=== PATIENT | male | born 1980 | race Caucasian/White ===

== ENCOUNTER → 2020-10-12 07:22 | Outpatient (CLI) | payer OTHER, SELFPAY ==
[2020-04-23 14:28] VITALS: BMI 22.3
[2020-10-12 10:18] LABS: Anion Gap 3 (5-15); BUN 19 mg/dL (7-18); BUN/Creat Ratio 17.8 RATIO (10-20); Calcium,Total 9.1 mg/dL (8.5-10.1); Chloride 106 mmol/L (98-107); Cholesterol 235 mg/dL (200); Creatinine, Serum 1.07 mg/dL (0.70-1.30); EST Glomerular Filtration Rate 81 mL/min (>60); Est Glom Filt Rate - Afr Amer 99 mL/min (>60); Glucose 80 mg/dL (74-106); High Density Lipoprotein 53 mg/dL; Potassium 4.3 mmol/L (3.5-5.1); Sodium Level 139 mmol/L (136-145); Triglycerides 77 mg/dL; Very Low Density Lipoprotein 15 mg/dL (5-40)
== END ==
PROVIDERS: PCP Family Medicine; Referring Provider Family Medicine; Visit Provider Family Medicine
DX: Z13.1 Encounter for screening for diabetes mellitus (principal); Z13.220 Encounter for screening for lipoid disorders
CPT/HCPCS: 36415; 80048; 80061

== ENCOUNTER → 2020-10-29 12:37 | Outpatient (CLI) | payer SELFPAY ==
[2020-04-23 14:28] VITALS: BMI 22.3
--- NOTE | 2020-10-29 12:42 | STE_ITS ---
Reason For Study: ABN. EKG Stress Results Protocol: Parveen Protocol WITH DEFINITY Maximum Predicted HR: 181 bpm Target HR: 154 bpm % Maximum Predicted HR: 99 % DurationHeart Rate Stage (mm:ss) (bpm) BP Comment BASELINE 72 132/863 CC DEFINITY FOR ENTIRE TEST STAGE 1 3:00 106 152/88 STAGE 2 3:00 127 160/90 STAGE 3 3:00 176 172/84 STAGE 4 3:00 179 180/70 RECOVERY 106 130/86 Stress Duration: 12:00 mm:ss Maximum Stress HR: 179 bpm Baseline Echocardiogram Findings The estimated ejection fraction is 55 %. post stress EF is 75%. Stress Echo Wall motion Data Resting WM Intermediate WM Stress WM Resting Wall Motion Wall Motion Stress No regional wall motion No regional wall motion abnormalities noted. abnormalities noted. EKG Data The baseline ECG displays normal sinus rhythm. During stress, there were no ST or T wave changes noted to suggest ischemia. Symptoms with Stress The patient experinced no chest pain . Interpretation Summary The estimated ejection fraction is 55 %. Stress echo is negative for exercise induced CP or EKG or Echocardiographic changes of ischemia Ordering Physician: Giovanni Lundberg Referring Physician: Giovanni Lundberg Performed By: Angel Mata RCS
== END ==
PROVIDERS: PCP Family Medicine; Referring Provider Family Medicine; Visit Provider Family Medicine
DX: R94.31 Abnormal electrocardiogram [ECG] [EKG] (principal)
CPT/HCPCS: 93017; 93350; Q9957; A4216; C8928

== ENCOUNTER → 2020-12-28 16:07 | Outpatient (CLI) | payer SELFPAY ==
--- NOTE | 2020-12-28 | VAS_PTH ---
PATIENT: TERRANCE GAMEZ LOC: [facility] U#:[id number] AGE/SX: 44/M ROOM: RE12/28/[address]: Dr. Rafael Marques MD : 1980 BED: DIS: SPEC #: [id number] RECD: 12/28/20 15:50 STATUS: JASBIR SOSA #: [id number] EMILIANO: 12/28/20 00:[address]: Rafael Marques DEPT: SURGICAL PATHOLOGY RECD BY: Jules Newell ENTERED: 12/31/20 08:29 SP TYPE: VAS OTHR DR: Dr. Giovanni Lundberg MD Tissues: A - Vas deferens, NOS B - Vas deferens, NOS Procedures: Surgery Specimen Level II HEADER OPERATION: Bilateral partial vasectomy PRE-OP DIAGNOSIS: Sterilization TISSUE SUBMITTED: A - Left vas deferens, B - Right vas deferens MICROSCOPIC DIAGNOSIS A. Left vas deferens, partial vasectomy: Completely transected segment of vas deferens, no pathologic diagnosis. B. Right vas deferens, partial vasectomy: Completely transected segment of vas deferens, no pathologic diagnosis. BASSEM:adolph 01/01/2021 MICROSCOPIC DESCRIPTION Slides are reviewed. GROSS DESCRIPTION A - Received is one container designated left vas deferens. The specimen consists of a tubular segment of maldonado soft tissue measuring 1 cm in length and 0.3 cm in diameter. The entire specimen is submitted in one cassette. It will be sectioned at the time of embedding. B - Received is one container designated right vas deferens. The specimen consists of a tubular segment of maldonado soft tissue measuring 1 cm in length and 0.3 cm in diameter. The entire specimen is submitted in one cassette. It will be sectioned at the time of embedding. / BASSEM:adolph 12/31/20 TC:4 CPT: 88334 x2
== END ==
PROVIDERS: PCP Family Medicine; Referring Provider Surgery; Visit Provider Surgery
DX: Z30.2 Encounter for sterilization (principal)
CPT/HCPCS: 88302

== ENCOUNTER → 2021-01-25 10:22 | Outpatient (CLI) | payer SELFPAY ==
[2021-01-28 13:30] LABS: Semen Analysis Post Vas ABSENT
== END ==
PROVIDERS: PCP Family Medicine; Referring Provider Surgery; Visit Provider Surgery
DX: Z30.2 Encounter for sterilization (principal)
CPT/HCPCS: 89321

== ENCOUNTER → 2021-01-29 08:39 | Outpatient (CLI) | payer SELFPAY ==
[2021-01-30 12:33] LABS: Semen Analysis Post Vas ABSENT
== END ==
PROVIDERS: PCP Family Medicine; Referring Provider Surgery; Visit Provider Surgery
DX: Z30.2 Encounter for sterilization (principal)
CPT/HCPCS: 89321

== ENCOUNTER → 2021-06-05 10:22 | Outpatient (CLI) | payer SELFPAY ==
--- NOTE | 2021-06-05 10:27 | US_ITS ---
EXAM: US SCROTUM CLINICAL INDICATION: TESTI PAIN TECHNIQUE: Realtime ultrasound of the testicles was performed with grayscale and Color Doppler analysis. This report was created using [employer] report [employer] technology. COMPARISON: None. FINDINGS: RIGHT TESTICLE: Unremarkable. Normal in size and echotexture. No focal lesion. Normal blood flow is present. LEFT TESTICLE: Unremarkable. Normal in size and echotexture. No focal lesion. Normal blood flow is present. EPIDIDYMIDES: Slight enlargement of the left epididymis but normal echotexture, without focal lesion. Normal color Doppler flow pattern in the epididymis. SCROTUM: Small bilateral hydroceles. US/Testicular with Arterial Flow IMPRESSION: Unremarkable sonographic appearance of the testicles. Small bilateral hydroceles. Electronically Signed: Jonathan Alcala MD ([place]) at 13:54 EDT , Service support ,
== END ==
PROVIDERS: PCP Family Medicine; Referring Provider Family Medicine; Visit Provider Family Medicine
DX: N50.812 Left testicular pain (principal)
CPT/HCPCS: 76870; 93976

== ENCOUNTER 2021-11-29 10:04 | Outpatient (CLI) | payer SELFPAY ==
[2021-11-29 12:42] LABS: Anion Gap 6 (5-15); BUN 20 mg/dL (7-18); BUN/Creat Ratio 19.4 RATIO (10-20); Calcium,Total 9.4 mg/dL (8.5-10.1); Chloride 107 mmol/L (98-107); Cholesterol 238 mg/dL (200); Creatinine, Serum 1.03 mg/dL (0.70-1.30); EST Glomerular Filtration Rate 85 mL/min (>60); Est Glom Filt Rate - Afr Amer 102 mL/min (>60); Glucose 107 mg/dL (74-106); High Density Lipoprotein 49 mg/dL; Potassium 3.6 mmol/L (3.5-5.1); Sodium Level 138 mmol/L (136-145); Triglycerides 155 mg/dL; Very Low Density Lipoprotein 31 mg/dL (5-40)
== END 2021-11-29 23:59 | disposition short-term general hospital (02) ==
LOC: MFPLAB 10:06
PROVIDERS: PCP Family Medicine; Referring Provider Family Medicine; Visit Provider Family Medicine
DX: Z00.00 Encounter for general adult medical examination without abnormal findings (principal)
CPT/HCPCS: 36415; 80048; 80061

== ENCOUNTER 2022-08-12 20:47 | Emergency (ER) | payer OTHER, SELFPAY ==
[2022-08-12 20:48] VITALS: BP 135/93; PULSE 89; RESP 15; TEMP 36.6; O2SAT 98; BMI 24.3
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
--- NOTE | 2022-08-12 21:16 | RAD_ITS ---
STUDY: X-RAY - RIGHT KNEE REASON FOR EXAM: Male, 41 years old. pain TECHNIQUE: 4 view(s) of the knee. COMPARISON: None. FINDINGS: Normal visualized distal femur. Normal visualized proximal tibia and fibula. Normal proximal tibiofibular articulation. Mildly narrowed medial femorotibial compartment. Normal lateral femorotibial compartment. Normal patellofemoral articulation. Diffuse prepatellar soft tissue swelling may be consistent with posttraumatic effusion. RAD/Knee 4 or More Views IMPRESSION: Prepatellar bursal effusion which may be posttraumatic without evidence for associated fracture Minor degenerative changes Electronically Signed: Gaudencio Cali MD at 21:40 EDT ,
[2022-08-12] MEDS: Lidocaine 1% (20 ml mdv) 20 ML Vial INFILT (22:04)
== END 2022-08-12 22:06 | disposition home or self-care (01) ==
PROVIDERS: Emergency Provider Emergency Medicine; PCP Family Medicine; Visit Provider Emergency Medicine
DX: M70.41 Prepatellar bursitis, right knee (principal)
CPT/HCPCS: 73564; 99282